=== PATIENT | male | born 1985 | race Caucasian/White ===

== ENCOUNTER 2020-07-29 03:14 | Emergency (ER) | payer MEDICAID, SELFPAY ==
[~2020-07-29] VITALS: Ht 185.4 cm; Wt 61.2 kg
--- NOTE | 2020-07-29 03:41 | NUR ---
CC OF CENTER CHEST AND UPPER MIDDLE ABD PAIN STARTING AROUND 1730 PM LAST NIGHT AFTER EATING PIZZA. PT STATES HE CAME HOME, HAD "AN EMERGNECY BOWEL MOVEMENT" AND HAD NO IMPROVEMENT. PAIN HAS PREVENTED PT FROM SLEEPING. NO CARDIAC HISTORY.
[2020-07-29 03:51] LABS: BASOPHILS % (AUTO) 1 % (0-1); EOSINOPHILS % (AUTO) 1 % (1-7); LYMPHOCYTES % (AUTO) 27 % (22-44); MEAN CORPUSCULAR HEMOGLOBIN 30.7 pg (27.5-34.5); MEAN CORPUSCULAR HGB CONC 34.3 g/dL (33.2-36.2); MEAN PLATELET VOLUME 6.9 fL (7.4-10.4); MONOCYTES % (AUTO) 7 % (2-9); NEUTROPHILS % (AUTO) 64 % (42-75); PLATELET COUNT 231 x10^3/uL (130-400); RED BLOOD COUNT 4.93 x10^6/uL (4.38-5.82)
[2020-07-29 03:59] LABS: ALBUMIN 3.8 g/dL (3.4-5.0); ANION GAP 3 mmol/L (5-15); CALCIUM 8.7 mg/dL (8.5-10.1); CHLORIDE 109 mmol/L (98-107)
[2020-07-29 04:04] LABS: ALANINE AMINOTRANSFERASE 32 U/L (12-78); ALKALINE PHOSPHATASE 79 U/L (45-117); BILIRUBIN,TOTAL 0.4 mg/dL (0.2-1.0); CREATININE 1.03 mg/dL (0.7-1.3); TOTAL PROTEIN 6.9 g/dL (6.4-8.2); TROPONIN I < 0.015 ng/mL (0.000-0.045)
[2020-07-29 04:15] LABS: MD NO
[2020-07-29] MEDS ORDERED: MAALOX/HYOSCYAMINE/LIDOCAINE 45 ML BTL ONE (04:47)
[2020-07-29] MEDS ORDERED: ONDANSETRON 2MG/ML, 2ML ONE (04:47)
[2020-07-29] MEDS ORDERED: MORPHINE SULFATE 4 MG/ML, 1ML ONE (04:47)
[2020-07-29] MEDS ORDERED: FAMOTIDINE 20 MG/2 ML ONE (04:48)
[2020-07-29] MEDS ORDERED: MAALOX/HYOSCYAMINE/LIDOCAINE 45 ML BTL PO ONE (05:00)
[2020-07-29] MEDS ORDERED: FAMOTIDINE 20 MG/2 ML IVPush ONE (05:00)
[2020-07-29] MEDS ORDERED: ONDANSETRON 2MG/ML, 2ML IVPush ONE (05:00)
[2020-07-29] MEDS ORDERED: MORPHINE SULFATE 4 MG/ML, 1ML IVPush PRN (05:00)
--- NOTE | 2020-07-29 05:08 | NUR ---
us at bedside
[2020-07-29] MEDS ORDERED: OMNIPAQUE 350 MG/ML, 100ML BOTTLE ONE (06:43)
[2020-07-29] MEDS ORDERED: VISIPAQUE 270 MG/ML, 50ML BOTTLE ONE (06:46)
--- NOTE | 2020-07-29 06:55 | NUR ---
report given to olinda rn
--- NOTE | 2020-07-29 06:59 | NUR ---
REPORT RECEIVED BY BERTA, ASSUMING PT CARE.
[2020-07-29 07:03] VITALS: BP 99/62
--- NOTE | 2020-07-29 07:27 | NUR ---
Pt is maría, no sx. Dr. Galo notified, repeat EKG ordered and completed.
== END 2020-07-29 08:04 | disposition home or self-care (01) ==
LOC: ED 03:51
DX: R10.13 Epigastric pain (principal); R00.1 Bradycardia, unspecified; R11.0 Nausea; R07.89 Other chest pain; Z88.0 Allergy status to penicillin; F17.210 Nicotine dependence, cigarettes, uncomplicated
CPT/HCPCS: 36415; 71045; 74177; 76700; 80053; 84484; 85025; 93005; 96374; 96375; 99285; J2270; J2405; Q9967; Q9966